=== PATIENT | female | born 1955 | race African-American/Black ===

== ENCOUNTER 2020-10-26 09:05 | Inpatient (IN) | payer OTHER ==
[~2020-10-26] VITALS: Ht 167.6 cm; Wt 89.0 kg
[2020-10-26] VITALS (13 sets, daily range): BP systolic 114–152; BP diastolic 63–78
--- NOTE | 2020-10-26 09:57 | EKG ---
[address] [place] [address] ELECTROCARDIOGRAM REPORT Name: BENJAMIN MANUELARMANDO Dubon [facility] #[id number] Admission: 10/26/20 Attend Phys: Discharge: Date of : 57 Report #: [id number] [facility] ED Test Date: 2020-10-26 Test Time: 09:11:17 Pat Name: MELANY MANUEL Department: Room: Gender: F Management Trainee Marketing: ONEIDA TAYLOR : 1955 Requested By: Zayda Johnson Order Number: [id number] MD: William Callejas Measurements Intervals [place] Rate: 145 P: 25 MA: 116 QRS: -21 QRSD: 81 T: 57 QT: 271 QTc: 421 Interpretive Statements Sinus tachycardia Borderline left axis deviation Minimal ST depression, lateral leads No previous ECG available for comparison Electronically Signed On 10-26-2020 9:57:09 CDT by William Callejas [email or web address] <ELECTRONICALLY SIGNED> By: William Callejas MD, [facility] 10/26/20 0957 0911 0 William Callejas MD, FACC /EPI
[2020-10-26] MEDS ORDERED: ALLOPURINOL 10100 M1 PO (10:04)
[2020-10-26] MEDS ORDERED: ADULT LOW DOSE81 MG PO (10:04)
--- NOTE | 2020-10-26 10:56 | NUR ---
VAT CONSULTED FOR PIV PLACEMENT FOR THIS PT. THIS RN ATTEMPTED RIGHT HAND 22, WITHOUT SUCCESS. ASSESSED BILATERAL FOREARMS FOR US GUIDED PLACEMENT, BUT VESSEL SIZE TOO SMALL. LEFT UPPER BASILIC EXTREMLEY SMALL AND BRACHIAL SMALL WELL. THIS RN RECOMMENDED CVL PLACEMENT, TO WHICH DR POSEY PLACED ORDER FOR INSERTION. LEFT TL JACC IJ CATHETER PLACED ON SECOND CANNULATION ATTEMPT. TRIMMED 25 AND 8 CM EXTERNAL. ALL LUMENS FLUSH AND DRAW BACK BLOOD BRISKLY. PT TOLERATED WELL. CXR FOR CONFIRMATION. RADIOLOGY DICTATED THAT TIP OVERLIES SVC. RELEASED FOR USE, PER HOSPITAL POLICY.
[2020-10-26 11:04] LABS: MCH 25.7 pg (26.0-34.0); MCHC 31.1 g/dL (28.0-37.0); MCV 82.8 fL (80.0-100.0); PLATELET COUNT 607 thou/uL (150-400); RBC 1.97 mil/uL (4.20-5.00)
[2020-10-26 11:08] LABS: HEMATOCRIT 16.3 % (37.0-47.0); HEMOGLOBIN 5.1 gm/dL (12.0-15.0); WBC 44.9 thou/uL (4.0-11.0)
[2020-10-26 11:13] LABS: ANION GAP 13 mmol/L (7-16); BUN 27 mg/dL (7-18); CALCIUM 8.2 mg/dL (8.5-10.1); CHLORIDE 104 mmol/L (98-107); CO2 20 mmol/L (21-32); CREATININE 1.1 mg/dL (0.6-1.0); GLUCOSE 108 mg/dL (74-106); SODIUM 137 mmol/L (136-145)
[2020-10-26 11:20] LABS: ALBUMIN 1.6 g/dL (3.4-5.0); SGOT 13 U/L (15-37); SGPT 11 U/L (14-59); TOTAL BILIRUBIN 0.4 mg/dL (0.2-1.0); TOTAL PROTEIN 6.3 g/dL (6.4-8.2); TROPONIN-I <0.06 ng/mL (<0.06)
[2020-10-26 11:30] LABS: ABSOLUTE NEUTROPHILS 43.6 thou/uL (1.4-8.2)
[2020-10-26 11:31] LABS: ANISOCYTOSIS 1+; HYPOCHROMASIA 2+; PLATELET ESTIMATE INCREASED; POLYCHROMASIA SLIGHT
[2020-10-26 11:52] LABS: URINE BILIRUBIN NEGATIVE (Negative); URINE BLOOD 2+ (Negative); URINE CLARITY CLOUDY; URINE COLOR YELLOW; URINE GLUCOSE-RANDOM* NEGATIVE (Negative); URINE KETONES TRACE (Negative); URINE PROTEIN (DIPSTICK) TRACE (Negative); URINE SPECIFIC GRAVITY 1.015 (1.005-1.035); URINE UROBILINOGEN 0.2 E.U./dl (0.2-1.0)
[2020-10-26 11:55] LABS: URINE LEUKOCYTES-REFLEX 3+ (Negative); URINE NITRITE-REFLEX POSITIVE (Negative)
[2020-10-26 12:10] LABS: AMORPHOUS URATES Moderate /LPF (None Seen); BACTERIA-REFLEX >30 Many /HPF (None Seen); CASTS None Seen /LPF (None Seen); SQUAMOUS 0-3 Few /LPF (0-3); URINE RBC 1-2 Rare /HPF (NONE SEEN); URINE WBC-REFLEX >25 Many /HPF (0-5)
[2020-10-26 13:15] LABS: FOLIC ACID 7.9 ng/mL (8.6-58.9)
--- NOTE | 2020-10-26 16:41 | NUR ---
PER DR MARIEE, PT IS TO BE NPO UNTIL OK'D BY IR
--- NOTE | 2020-10-26 16:41 | NUR ---
PER SABRINA, PT DOES NOT NEED TO BE IN ISOLATION FOR HISTORY OF MRSA IN NARES.
--- NOTE | 2020-10-26 16:43 | NUR ---
PT ARRIVED TO FLOOR APPROXIMATEL 1530. PT IS TOO WEAK TO TRANSFER SELF TO BED. BLOOD INFUSING ON ARRIVAL. PT HAS TRIPLE LUMEN L IJ PICC. PT IS ALERT TO SELF, PLACE. HAS TROUBLE REMEMBERING FAMILY PHONE NUMBERS/NAMES. PT CAME FROM [facility]. PT WAS THERE FOR REHAB POST CANCER STRENGTHENING. PT LIVES WITH S/O OTHERWISE. PT HAS FIRM MASS ON L ABDOMEN, PAIN 10/10 IN LLQ.
--- NOTE | 2020-10-26 18:04 | NUR ---
[facility] RESPONSE CALLED SHORTLY AFTER 1700 DUE TO PT COMPLAINTS OF CHEST PAIN, FEELING LIKE SHE WAS GOING TO PASS OUT AND SEVERE PAIN. TEAM ARRIVED WITH DR HARO, BOLUS OF NS ORDERED X2. DECISION WAS MADE TO TRANSFER PT TO ICU, PT CURRENTLY WAITING ON BED. PT CONTINUES TO HAVE SEVERE PAIN. NS BOLUS INFUSING.
--- NOTE | 2020-10-26 18:26 | NUR ---
FOOD SAFETY AUDITOR CALLED FOR PT FOR TACHYCARDIA IN 160-170'S . SEE FLOWSHEET FOR DETAILS.
[2020-10-26 20:04] LABS: MCH 25.6 pg (26.0-34.0); MCHC 31.3 g/dL (28.0-37.0); MCV 81.9 fL (80.0-100.0); RBC 1.97 mil/uL (4.20-5.00); RDW 20.7 % (10.5-14.5)
[2020-10-26 20:06] LABS: PLATELET COUNT 514 thou/uL (150-400)
[2020-10-26 20:08] LABS: CALCIUM 7.5 mg/dL (8.5-10.1); POTASSIUM 3.9 mmol/L (3.5-5.1)
[2020-10-26 20:11] LABS: HEMOGLOBIN 5.1 gm/dL (12.0-15.0); WBC 49.1 thou/uL (4.0-11.0)
[2020-10-26 20:12] LABS: HEMATOCRIT 16.2 % (37.0-47.0)
[2020-10-26 21:01] LABS: INR 1.3; PROTIME 13.1 Seconds (9.3-11.4)
[2020-10-26 21:36] LABS: ABSOLUTE NEUTROPHILS 48.1 thou/uL (1.4-8.2); ANISOCYTOSIS 2+; HYPOCHROMASIA 1+; POLYCHROMASIA 1+
[2020-10-26 21:37] LABS: PLATELET ESTIMATE INCREASED
[2020-10-27] VITALS (46 sets, daily range): BP systolic 114–145; BP diastolic 65–94
[2020-10-27] MEDS ORDERED: BUSPIRONE HCL10 MG PO (00:43)
[2020-10-27] MEDS ORDERED: LIPITOR10 MG PO (00:43)
[2020-10-27] MEDS ORDERED: CALCIUM CARBON500 MG PO (00:44)
[2020-10-27] MEDS ORDERED: VITAMIN D325 MC1 PO (00:45)
[2020-10-27] MEDS ORDERED: TIZANIDINE HCL2 M1 PO (00:46)
[2020-10-27] MEDS ORDERED: MIRALAX119 GM PO (00:47)
[2020-10-27] MEDS ORDERED: PERCOCET 5-3251 EACH PO (00:48)
[2020-10-27] MEDS ORDERED: CVS SENNA PLUS1 EACH PO (00:49)
[2020-10-27] MEDS ORDERED: FISH OIL 1,0001 EAC9 PO (00:50)
--- NOTE | 2020-10-27 01:08 | NUR ---
PT TRANSFEERRED FROM [facility] AT AROUND 2245 FOR CLOSE MONITORING D/T BEING ACTIVELY BLEEDING AND TCAHYCARDIAC.ARRIVED TO UNIT VIA BED ACCOMPANIED BY THE STAFF.PT A/OX3,RESPONDING TO COMMANDS APPROPRIATELY.ANTIBIOTICS INFUSED PER ORDERS.BLOOD TRANSFUSION INTIATED PER ORDERS.PAIN MEDS GIVEN FOR ABDOMINAL PAIN,PT SLEEPING AT THIS TIME.ASSESSMENT COMPLETED DOCUMENTED.NO BOWELS MOVEMENT SINCE ARRIVAL TO ICU UNIT.WILL CONT W/CURRENT POC
[2020-10-27 05:39] LABS: BE(vivo) -5.3 mmol/L (-2 to +3); HCO3 17.8 mmol/L (22.0-26.0); PCO2 26.2 mmHg (35.0-45.0); PO2 95.7 mmHg (80.0-100.0); sO2 97.7 % (92.0-98.0)
[2020-10-27 05:41] LABS: HEMATOCRIT 24.6 % (37.0-47.0); MCH 26.7 pg (26.0-34.0); MCHC 32.5 g/dL (28.0-37.0); PLATELET COUNT 459 thou/uL (150-400); RDW 16.9 % (10.5-14.5)
[2020-10-27 05:46] LABS: ALBUMIN 1.5 g/dL (3.4-5.0); CALCIUM 7.5 mg/dL (8.5-10.1); MAGNESIUM 1.5 mg/dL (1.8-2.4); POTASSIUM 3.9 mmol/L (3.5-5.1); TOTAL BILIRUBIN 0.8 mg/dL (0.2-1.0); TOTAL PROTEIN 5.2 g/dL (6.4-8.2)
[2020-10-27 06:16] LABS: WBC 51.1 thou/uL (4.0-11.0)
--- NOTE | 2020-10-27 07:22 | EKG ---
[address] [email or web address] [address] ELECTROCARDIOGRAM REPORT Name: MARMELANY Dubon Room #: 239-P ADM IN M.R.#: [id number] Admission: 10/26/20 Attend Phys: Luis Herrera MD Discharge: Date of : 57 Report #: [id number] [facility] Test Date: 2020-10-26 Test Time: 17:09:43 Pat Name: MELANY MANUEL Department: Room: 239 Gender: F Art Appraiser: FSCHWALBE : 1955 Requested By: Luis Herrera Order Number: [id number] MD: William Callejas Measurements Intervals [place] Rate: 164 P: 30 IN: 165 QRS: -2 QRSD: 103 T: 103 QT: 247 QTc: 408 Interpretive Statements Supraventricular tachycardia Low voltage, extremity and precordial leads Repolarization abnormality, prob rate related Compared to ECG 10/26/2020 09:11:17 Low QRS voltage now present Early repolarization now present Sinus tachycardia no longer present ST (T wave) deviation no longer present Electronically Signed On 10-27-2020 7:21:50 CDT by William Callejas [email or web address] <ELECTRONICALLY SIGNED> By: William Callejas MD, [facility] 10/27/20 0721 1709 1709 William Callejas MD, [facility] /EPI
[2020-10-27 11:46] LABS: HEMATOCRIT 23.8 % (37.0-47.0); HEMOGLOBIN 7.6 gm/dL (12.0-15.0)
--- NOTE | 2020-10-27 11:57 | NUR ---
ASSUMED PATIENT CARE AT 0700. PATIENT DISORIENTED WHEN FIRST AWOKEN, NOW ORIENTED. MAROON COLORED STOOL X1. WILL CONTINUE TO TREND HGB Q6. SIGNIFICANT OTHER AT BEDSIDE, QUESTIONS ANSWERED. DAUGHTER ALFRED PROVIDED UPDATE THIS MORNING OVER THE PHONE. IR TEAM CALLED AND NOTIFIED THIS RN THAT THEY DO NOT BELIEVE THE PATIENT HAS AN ABSCESS. DR. MARIEE NOTIFIED AT 1155 AND INSTRUCTED TO CALL IR PHYSICIAN TO DISCUSS.
[2020-10-27 12:09] LABS: ABSOLUTE NEUTROPHILS 48.5 thou/uL (1.4-8.2)
[2020-10-27 12:19] LABS: ANISOCYTOSIS SLIGHT; POIKILOCYTOSIS SLIGHT; POLYCHROMASIA SLIGHT; TOXIC GRANULATION 1+
[2020-10-27] MEDS ORDERED: TOPROL XL50 MG PO (15:11)
[2020-10-27] MEDS ORDERED: FIBERCON625 MG PO (15:11)
[2020-10-27] MEDS ORDERED: DULOXETINE HCL30 MG PO (15:11)
[2020-10-27] MEDS ORDERED: SINGULAIR 10 MG10 MG PO (15:11)
[2020-10-27] MEDS ORDERED: SUPER THERAVIT1 EACH PO (15:11)
[2020-10-27] MEDS ORDERED: DULCOLAX STOOL100 M1 PO (15:12)
[2020-10-27] MEDS ORDERED: TURMERIC500 M2 PO (15:12)
[2020-10-27] MEDS ORDERED: VOLTAREN GEL 1100 GM TOP (15:12)
[2020-10-27] MEDS ORDERED: DURAGESIC1 EACH TRANSDERM (15:13)
--- NOTE | 2020-10-27 16:07 | NUR ---
Case discussed in ICU rounds and opened to follow for dc planning. Pt transfered from to ICU with rapid response this morning. She is being treated for sepsis, GI bleed, and retroperitoneal hematoma/cancer. Pt rec'd 2units of PRBC this morning and IR consulted for possible drain. GI and ONC consulted as well. Pt admitted from [facility] where she has been a resident since September. She admitted to them a month ago after a lengthy stay at [facility]. She is undergoing cancer tx and was too weak to return home with her sign other Shiraz. [facility] does have a pending [place] and [place] disability application. Pt's dtr is also noted as an emergency contact. 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 [facility] is also following along and will check the status of her medicaid application. Clinical updated faxed to the [facility]. They are hold a bed for her at their [facility] facility. Nursing reports her sign other was here this am to visit and her dtr is coming in later this afternoon. Will follow.
[2020-10-28] VITALS (16 sets, daily range): BP systolic 113–137; BP diastolic 64–85
[2020-10-28 04:48] LABS: HEMOGLOBIN 7.1 gm/dL (12.0-15.0)
[2020-10-28 05:00] LABS: HEMATOCRIT 21.4 % (37.0-47.0); MCH 27.6 pg (26.0-34.0); MCV 83.7 fL (80.0-100.0); RBC 2.56 mil/uL (4.20-5.00); RDW 17.7 % (10.5-14.5)
[2020-10-28 05:01] LABS: CALCIUM 7.7 mg/dL (8.5-10.1); CREATININE 0.9 mg/dL (0.6-1.0); MAGNESIUM 1.9 mg/dL (1.8-2.4); POTASSIUM 3.7 mmol/L (3.5-5.1)
[2020-10-28 05:14] LABS: WBC 51.9 thou/uL (4.0-11.0)
--- NOTE | 2020-10-28 11:55 | NUR ---
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 pina agrees with plan, as hospitalist spoke with her. shakir spoke with jorge at [facility] transfer line # [phone], fax # [phone]. cm fax referral and had images clouded [place] to [facility].
[2020-10-28 12:56] LABS: HEMATOCRIT 21.5 % (37.0-47.0)
--- NOTE | 2020-10-28 14:41 | NUR ---
ASSUMED PATIENT CARE AT 0700. PATIENT HAD ONE SMALL BLOODY BM TODAY. PATIENT IS MORE AWAKE AND ALERT TODAY. PATIENT IS BEING TRANSFERED TO [facility] AT REQUEST OF THE PHYSICIANS. REPORT CALLED TO NURSE AT [facility] AT 1420. DR. CUNHA IS THE ACCEPTING PHYSICIAN.
[2020-10-28] MEDS ORDERED: MEROPENEM-500 MG/50 IVPB (15:36)
[2020-10-28] MEDS ORDERED: VANCO 1 GR1 GM/250 M IVPB (15:37)
[2020-10-28] MEDS ORDERED: MICAFUNGIN100 MG IV (15:39)
[2020-10-28] MEDS ORDERED: PROTONIX IV40 MG IV (15:40)
== END 2020-10-28 16:00 | disposition short-term general hospital (02) | DRG 871 ==
LOC: EDBD 09:05 → ER 09:05 → EROBS 12:19 → 3W 15:31 → ICU 22:37
PROVIDERS: Emergency Medicine; Internal Medicine; Nurse Practitioner; Nurse Practitioner Family; ADMIT Internal Medicine; ATTEND Internal Medicine
DX: A41.9 Sepsis, unspecified organism (principal); K65.1 Peritoneal abscess; E43 Unspecified severe protein-calorie malnutrition; N17.0 Acute kidney failure with tubular necrosis; N39.0 Urinary tract infection, site not specified; C48.0 Malignant neoplasm of retroperitoneum; C48.2 Malignant neoplasm of peritoneum, unspecified; I42.9 Cardiomyopathy, unspecified; R65.20 Severe sepsis without septic shock; D64.9 Anemia, unspecified; N31.9 Neuromuscular dysfunction of bladder, unspecified; R31.9 Hematuria, unspecified; F41.9 Anxiety disorder, unspecified; M10.9 Gout, unspecified; N18.9 Chronic kidney disease, unspecified; I12.9 Hypertensive chronic kidney disease with stage 1 through stage 4 chronic kidney disease, or unspecified chronic kidney disease; D63.8 Anemia in other chronic diseases classified elsewhere; D72.823 Leukemoid reaction; Z91.041 Radiographic dye allergy status; Z85.528 Personal history of other malignant neoplasm of kidney; Z90.5 Acquired absence of kidney; Z68.31 Body mass index [BMI] 31.0-31.9, adult; Z86.010 Personal history of colon polyps
CPT/HCPCS: 10078; 85076

== ENCOUNTER → 2021-04-15 | Outpatient (CLI) | payer OTHER ==
[~2021-04-15] MED LIST: ADULT LOW DOSE81 MG PO; ALLOPURINOL 10100 M1 PO; BUSPIRONE HCL10 MG PO; CALCIUM CARBON500 MG PO; CVS SENNA PLUS1 EACH PO; DULCOLAX STOOL100 M1 PO; DULOXETINE HCL30 MG PO; DURAGESIC1 EACH TRANSDERM; FIBERCON625 MG PO; FISH OIL 1,0001 EAC9 PO; LIPITOR10 MG PO; MEROPENEM-500 MG/50 IVPB; MICAFUNGIN100 MG IV; MIRALAX119 GM PO; PERCOCET 5-3251 EACH PO; PROTONIX IV40 MG IV; SINGULAIR 10 MG10 MG PO; SUPER THERAVIT1 EACH PO; TIZANIDINE HCL2 M1 PO; TOPROL XL50 MG PO; TURMERIC500 M2 PO; VANCO 1 GR1 GM/250 M IVPB; VITAMIN D325 MC1 PO; VOLTAREN GEL 1100 GM TOP
--- NOTE | 2021-04-15 13:07 | NUR ---
TICC LINE REOMVE WITHOUT AN ISSUE TRANSPORTATION CALLED
== END | disposition home or self-care (01) ==
LOC: SPEC 12:06
PROVIDERS: ATTEND Nurse Practitioner Adult Health
DX: Z45.2 Encounter for adjustment and management of vascular access device (principal)